=== PATIENT | male | born 1950 | race American Indian/Alaskan Native ===

== ENCOUNTER 2017-06-09 08:19 | Day surgery (SDC) | payer MEDICARE, OTHER ==
[~2017-06-09 08:19] MED LIST: ANCEF/STERILE WATER 2 GM/20 ML 2 GM/20 ML SYRINGE IV NR; NACL 0.9% 1000 ML 1,000 ML IV SCH
[2017-06-09] MEDS ORDERED: NACL 0.9% 500 ML 500 ML IV SCH (10:00)
[2017-06-09 10:53] LABS: Hematocrit 41.3 % (35.5-45.6); Hemoglobin 13.6 gm/dl (11.8-15.2); Mean Corpuscular HGB Conc 33 % (32-34); Mean Corpuscular Hemoglobin 31 pg (28-32); Mean Corpuscular Volume 93 fl (84-94); Platelet Count 129 K/mm3 (140-440); Red Blood Count 4.45 M/mm3 (3.65-5.03); Red Cell Distribution Width 14.4 % (13.2-15.2); White Blood Count 3.7 K/mm3 (4.5-11.0)
[2017-06-09 11:04] LABS: Anion Gap 13 mmol/L; BUN/Creatinine Ratio 18.88; Blood Urea Nitrogen 17 mg/dL (9-20); Calcium 8.8 mg/dL (8.4-10.2); Carbon Dioxide 29 mmol/L (22-30); Chloride 105.5 mmol/L (98-107); Glucose 94 mg/dL (75-100); Potassium 4.4 mmol/L (3.6-5.0); Sodium 143 mmol/L (137-145)
[2017-06-09 11:13] LABS: INR 1.14 (0.87-1.13); Partial Thromboplastin Time 25.3 Sec. (24.2-36.6)
[2017-06-09] MEDS ORDERED: NACL 0.9% 500 ML 500 ML ONE (11:53)
[2017-06-09 11:55] LABS: Anisocytosis 1+; Basophils % (Manual) 0 % (0.0-1.8); Blastocytes % (Manual) 0 %; Diff Status Complete; Platelet Estimate Cons
[2017-06-09] MEDS ORDERED: HEPARIN/NS 5000 UNIT/500ML(CATH LAB) 1,000 ML IR ONE (13:24)
[2017-06-09] MEDS ORDERED: XYLOCAINE 1%/ EPI 1:100,000 INFILTRATI ONE (13:25)
[2017-06-09] MEDS ORDERED: ANCEF/STERILE WATER 2 GM/20 ML 2 GM/20 ML SYRINGE IV ONE (13:25)
[2017-06-09] MEDS ORDERED: VERSED ONE (13:25)
[2017-06-09] MEDS ORDERED: HEPARIN 10,000 UNITS/10 ML ONE (13:25)
[2017-06-09] MEDS ORDERED: SUBLIMAZE ONE (13:25)
[2017-06-09] MEDS ORDERED: ZOFRAN ONE (13:44)
--- NOTE | 2017-06-09 15:22 | Short Stay Summary ---
Short Stay Documentation Date of service: 06/09/17 - History Principal diagnosis: Venous compression - Allergies and Medications Current Medications: Allergies No Known Allergies Allergy (Verified 06/08/17 09:27) Home Medications Medication Instructions Recorded Confirmed Last Taken Type Levothyroxine [Synthroid] 25 mcg PO QAM 06/09/17 06/09/17 06/08/17 History 25mcg Rivaroxaban [Xarelto] 20 mg PO QDAY 06/09/17 06/09/17 06/08/17 History 20mg Active Medications Cefazolin Sodium (Ancef/Sterile Water 2 Gm/20 Ml) 2 gm in 20 mls @ 80 mls/hr IV PREOP NR PRN Reason: Protocol Stop: 06/09/17 20:00 Sodium Chloride (Nacl 0.9% 500 Ml) 500 mls @ 50 mls/hr IV DIRECT IRASEMA Last Admin: 06/09/17 11:56 Dose: 50 mls/hr - Brief post op/procedure progress note Date of procedure: 06/09/17 Pre-op diagnosis: Venous compression Post-op diagnosis: same Procedure: LLE venogram, venoplasty and stent placement Anesthesia: local Surgeon: RADHA LOPEZ Estimated blood loss: minimal Pathology: none Condition: stable - Disposition Condition at discharge: Good Disposition: DC-01 TO HOME OR SELFCARE Short Stay Discharge Plan Activity: advance as tolerated Weight Bearing Status: Weight Bear as Tolerated Diet: regular Wound: keep clean and dry, per your surgeon's advice Follow up with: GABRIELA GANDARA MD [Primary Care Provider] - 7 Days
--- NOTE | 2017-06-09 15:29 | Operative Report ---
Operative Report Operative Report: EXAM: LEFT LOWER EXTREMITY VENOGRAM, VENOPLASTY AND STENT PLACEMENT FOR 2 SEPARATE LESIONS CLINICAL INDICATION: PATIENT WITH A HISTORY OF VENOUS INSUFFICIENCY SECONDARY TO EXTRINSIC COMPRESSION OF AND ARTERY OF A VEIN. DATE: 06/09/2017 PROCEDURE: Following an explanation of the risks, benefits and alternatives; written informed consent was obtained. The patient was brought to the injury graphic suite and placed in supine position on the examination table. Initial ultrasound evaluation of his left common femoral vein demonstrates a patent left common femoral vein. There is chronic appearing nonoccluding thrombus within the distal aspect of the left common femoral vein and left superficial femoral vein proximally. The patient's left leg was prepped and draped in the usual sterile fashion. 1% lidocaine was used for anesthesia. Under ultrasound guidance, the left common femoral vein was cannulated with a 7 cm 18-gauge needle. A 0.035 guidewire was advanced centrally under fluoroscopy. The needle was removed and a 5 [place] sheath placed. Venography performed through the sheath demonstrates stents extending from the left common iliac vein to the left common femoral vein. There is extrinsic compression introduced distinct areas 1 involving the left common femoral vein at the level of the femoral head a. Additionally, partially occluding thrombus is identified in this area. The second area involves the distal left external iliac vein and area of the stent overlap. Serial dilation was then performed in a 12 [place] sheath placed over the guidewire under fluoroscopy. Additional angiographic imaging was obtained for anatomic localization. Given the patient's significant left lower extremity swelling, ulceration and pain, a decision was made to place stents across these lesions for additional support. A 13 mm x 10 cm via upon stent was deployed from the left common femoral vein into the left external iliac vein. The stent was seated in a 12 mm balloon distally. A separate 11 mm x 59 mm VBX stent was then deployed across the lesion in the left external iliac vein. The stent was post dilated with a 14 mm balloon proximally and a 12 mm balloon distally. Post stent placement imaging demonstrated brisk luminal flow throughout the visualized veins. The catheters, guidewires and she's were removed and hemostasis achieved using manual compression. A compression dressing was also placed. The patient tolerated the procedure well. There were no immediate post procedure complications. Conscious sedation was performed under the guidance of radiologic nursing. Continuous cardiopulmonary monitoring was utilized. IMPRESSION: 1) Left lower extremity venogram demonstrating stenosis secondary to extrinsic compression within the left common femoral vein at the femoral head at the site of stent overlap. A separate second lesion is identified within the left external iliac vein. The common femoral vein lesion is approximately 80% stenosis. The external iliac vein lesion is approximately 60 % stenosis. 2) Venoplasty with stent placement as described reducing the 80% stenosis within the common femoral vein to less than 10%. 3) Venoplasty was stent placement reducing the 60% stenosis in the external iliac vein to less than 10%. Brisk luminal flow was present throughout all visualized veins in the pelvis on the left.
[2017-06-09 16:39] VITALS: BP 116/64
== END 2017-06-09 17:00 | disposition home or self-care (01) ==
LOC: CATHLABREC 08:19
PROVIDERS: ATTEND Radiology Diagnostic Radiology
DX: I87.1 Compression of vein (principal); E03.9 Hypothyroidism, unspecified; Z98.890 Other specified postprocedural states; Z80.9 Family history of malignant neoplasm, unspecified; Z79.899 Other long term (current) drug therapy
CPT/HCPCS: 36415; 37238; 37239; 75820; 80048; 85007; 85025; 85610; 85730; C1725; C1769; C1887; C2629; J0690; J1644; J2250; J2405; J3010; J7040; Q9967

== ENCOUNTER 2017-10-02 08:13 | Day surgery (SDC) | payer MEDICARE, OTHER ==
[2017-10-02 08:56] LABS: Basophils % (Auto) 1.3 % (0.0-1.8); Eosinophils % (Auto) 5.7 % (0.0-4.3); Hematocrit 44.7 % (35.5-45.6); Hemoglobin 15.1 gm/dl (11.8-15.2); Mean Corpuscular HGB Conc 34 % (32-34); Mean Corpuscular Hemoglobin 32 pg (28-32); Mean Corpuscular Volume 94 fl (84-94); Platelet Count 150 K/mm3 (140-440); Red Blood Count 4.78 M/mm3 (3.65-5.03); Red Cell Distribution Width 14.1 % (13.2-15.2); White Blood Count 5.2 K/mm3 (4.5-11.0)
[2017-10-02 09:08] LABS: INR 1.46 (0.87-1.13); Partial Thromboplastin Time 37.8 Sec. (24.2-36.6)
[2017-10-02 09:10] LABS: BUN/Creatinine Ratio 20; Blood Urea Nitrogen 18 mg/dL (9-20); Carbon Dioxide 28 mmol/L (22-30); Chloride 99.9 mmol/L (98-107); Glucose 100 mg/dL (75-100); Sodium 139 mmol/L (137-145)
[2017-10-02 09:43] LABS: Anion Gap 16 mmol/L; Potassium 4.5 mmol/L (3.6-5.0)
[2017-10-02] MEDS ORDERED: HEPARIN/NS 5000 UNIT/500ML(CATH LAB) 500 ML IR ONE ×2 (09:58→10:34)
[2017-10-02] MEDS ORDERED: HEPARIN 10,000 UNITS/10 ML ONE (09:59)
[2017-10-02] MEDS ORDERED: SUBLIMAZE ONE (10:00)
[2017-10-02] MEDS ORDERED: ANCEF/STERILE WATER 2 GM/20 ML 0 GM/0 ML SYRINGE IV ONE (10:00)
[2017-10-02] MEDS ORDERED: VERSED ONE ×2 (10:00→10:46)
[2017-10-02] MEDS ORDERED: XYLOCAINE 2% INFILTRATI ONE (10:00)
[2017-10-02] MEDS ORDERED: NACL 0.9% 1000 ML 1,000 ML ONE (10:06)
[2017-10-02] MEDS ORDERED: NACL 0.9% 1000 ML 1,000 ML IV SCH (11:00)
--- NOTE | 2017-10-02 11:28 | Short Stay Summary ---
Short Stay Documentation Date of service: 10/02/17 - History Principal diagnosis: venous insufficiency/post thrombotic syndrome H&P: obtained from office - Allergies and Medications Current Medications: Allergies No Known Allergies Allergy (Verified 06/08/17 09:27) Home Medications Medication Instructions Recorded Confirmed Last Taken Type Levothyroxine [Synthroid] 25 mcg PO QAM 06/09/17 10/02/17 10/02/17 06:30 History Rivaroxaban [Xarelto] 20 mg PO QDAY 06/09/17 10/02/17 10/02/17 07:30 History Active Medications Cefazolin Sodium (Ancef/Sterile Water 2 Gm/20 Ml) 2 gm in 20 mls @ 80 mls/hr IV PREOP NR PRN Reason: Protocol Stop: 10/02/17 21:00 Sodium Chloride (Nacl 0.9% 1000 Ml) 1,000 mls @ 42 mls/hr IV DIRECT IRASEMA Last Admin: 10/02/17 10:12 Dose: 42 mls/hr - Brief post op/procedure progress note Date of procedure: 10/02/17 Pre-op diagnosis: venous insufficiency/post thrombotic syndrome Post-op diagnosis: same Procedure: venoplasty left SFV and POP Anesthesia: local Surgeon: RADHA LOPEZ Estimated blood loss: minimal Pathology: none Condition: stable - Disposition Condition at discharge: Good Disposition: DC-01 TO HOME OR SELFCARE Short Stay Discharge Plan Activity: advance as tolerated Weight Bearing Status: Weight Bear as Tolerated Diet: regular Wound: keep clean and dry, per your surgeon's advice Follow up with: GABRIELA GANDARA MD [Primary Care Provider] - 7 Days
--- NOTE | 2017-10-02 11:33 | Operative Report ---
Operative Report Operative Report: EXAM: LEFT LOWER EXTREMITY VENOGRAM, VENOPLASTY CLINICAL INDICATION: PATIENT WITH A HISTORY OF VENOUS INSUFFICIENCY AND POST- THROMBOTIC SYNDROME INVOLVING HIS LEFT LOWER LEG. DATE: 10/02/2017 PROCEDURE: Following an explanation of the risks, benefits and alternatives; written informed consent was obtained. The patient was brought to the injury Suite and placed in supine position on the examination table. Initial ultrasound evaluation of his left ankle demonstrated a patent left posterior tibial vein. The left ankle and bilateral groins were prepped and draped in the usual sterile fashion. One percent lidocaine was used for anesthesia. Under ultrasound guidance, the left posterior tibial vein was cannulated with a 7 cm 21-gauge needle. A 0.018 guidewire was advanced centrally. The needle was removed and a micro-sheath place. The 0.018 guidewire was exchanged for a 0.035 guidewire and a micro-sheath exchanged for a 5 [place] [employer] vascular sheath. Venogram performed through the sheath demonstrated 60-70% chronic stenosis involving the left popliteal vein. Additionally, there is a 70-80% stenosis involving the mid femoral vein. Given the patient's comorbidities and prior interventions, decision was made to treat these 2 lesions. A 6 mm x 100 mm Lutonix drug coated balloon was advanced across the popliteal vein lesion and insufflated for 3 minutes at 10 doc. A 6 mm x 100 mm Lutonix drug coated balloon was advanced across the femoral vein lesion and insufflated for 3 minutes at 10 doc Post-venoplasty imaging demonstrated a reduction of the stenosis to approximately 30% in each location. At that point, the guidewire and sheath were removed and hemostasis achieved at the left ankle using manual compression. A sterile compression dressing was then applied. The patient tolerated the procedure well. There were no immediate post procedure palpitations. Conscious sedation was performed under the guidance of radiologic nursing. Continuous cardiopulmonary monitoring was utilized. IMPRESSION: 1) Left lower extremity venogram demonstrating stenoses involving the left popliteal vein and left mid femoral vein. 2) Treatment of the left popliteal vein lesion with venoplasty with a drug-coated balloon. 3) Treatment of the left femoral vein lesion with venoplasty with a drug-coated balloon.
[2017-10-02 12:28] VITALS: BP 131/81
--- NOTE | 2017-10-03 11:48 | Vascular Lab Report ---
MISCELLANEOUS VESSEL IDENTIFICATION: COMMENTS ON THE SCAN: The left posterior tibial vein was identified and under real-time ultrasound guidance was cannulated. IMPRESSION: Successful ultrasound guided vein cannulation.
== END 2017-10-02 12:20 | disposition home or self-care (01) ==
LOC: CATHLABREC 08:13
PROVIDERS: ATTEND Radiology Diagnostic Radiology
DX: I87.1 Compression of vein (principal); E05.90 Thyrotoxicosis, unspecified without thyrotoxic crisis or storm; I87.2 Venous insufficiency (chronic) (peripheral); I82.532 Chronic embolism and thrombosis of left popliteal vein; Z98.890 Other specified postprocedural states; Z79.01 Long term (current) use of anticoagulants
CPT/HCPCS: 36415; 37248; 75820; 76937; 80048; 85025; 85610; 85730; 99156; C1751; C1769; J1644; J2250; J3010; J7030; J0690; Q9967